=== PATIENT | female | born 1990 | race Caucasian/White ===

== ENCOUNTER 2021-09-24 19:43 | Emergency (ER) | payer OTHER ==
--- NOTE | 2021-09-24 19:48 | ERPHSYRPT ---
- History of Present Illness Time Seen by Provider: 09/24/21 19:48 Source: patient Exam Limitations: no limitations Physician History: This is a 31-year-old white female who has some anxiety issues and approximately 9 months ago was diagnosed with pneumonia. She has had pain in the left posterior lateral region ever since. Last 2 months it seems to be getting worse. She has not fallen she does not have a cough. She has not had a fever. The patient also told the nurse that she thinks that she might have an STD. She is not having any dysuria, hematuria or frequency she has no abdominal pain. She has no nausea vomiting or diarrhea symptoms but she does have flank pain on the left side. Patient drove herself into the hospital. Timing/Duration: other (2 months) Method of Injury: other (No trauma) Quality: dull, aching Back Pain Location: T-spine, paraspinous muscles Severity of Pain-Max: mild Severity of Pain-Current: mild Associated Symptoms: denies symptoms Previous symptoms: same symptoms as today, no recent treatment Allergies/Adverse Reactions: metoclopramide [From Reglan] Allergy (Verified 09/24/21 20:07) Home Medications: Alprazolam [Xanax] 1 tab PO QID 09/24/21 [History] Gabapentin 1 tab PO HS 09/24/21 [History] Gabapentin 100 mg [Neurontin 100 MG] 200 mg PO BID 09/24/21 [History] Galcanezumab-Gnlm [Emgality Syringe] 120 mg IM DIRECTIONS UNKNOWN 09/24/21 [History] Sumatriptan Succinate 6 mg [Imitrex 6 MG/0.5 ML] 6 mg IM DAILY PRN 09/24/21 [History] Tizanidine HCl 4 mg [Zanaflex 4 MG] 2 tab PO HS 09/24/21 [History] Travel Risk - International Travel Have you traveled outside of the country in past 3 weeks: No - Coronavirus Screening Are you exhibiting any of the following symptoms?: No Close contact with a COVID-19 positive Pt in past 14-21 Days: No - Review of Systems Constitutional: No Symptoms Eyes: No Symptoms Ears, Nose, & Throat: No Symptoms Respiratory: No Symptoms Cardiac: No Symptoms Abdominal/Gastrointestinal: No Symptoms Genitourinary Symptoms: No Symptoms Musculoskeletal: Back Pain, No Fall, No Injury Skin: No Symptoms Neurological: No Symptoms Psychological: No Symptoms Endocrine: No Symptoms Hematologic/Lymphatic: No Symptoms Immunological/Allergic: No Symptoms All Other Systems: Reviewed and Negative - Past Medical History Pertinent Past Medical History: Yes - Past Surgical History Past Surgical History: Yes - Nursing Vital Signs Nursing Vital Signs: Initial Vital Signs Temperature 99.2 F 09/24/21 20:10 Pulse Rate 76 09/24/21 20:10 Respiratory Rate 18 09/24/21 20:10 Blood Pressure 122/77 09/24/21 20:10 O2 Sat by Pulse Oximetry 99 09/24/21 20:10 Pain Scale Pain Intensity [Center of back [address]] Pain Intensity 6 - Physical Exam General Appearance: no apparent distress, alert, anxiety Eye Exam: PERRL/EOMI, eyes nml inspection Ears, Nose, Throat Exam: normal ENT inspection, moist mucous membranes Neck Exam: normal inspection, non-tender, supple, full range of motion Respiratory Exam: normal breath sounds, lungs clear, airway intact, No chest tenderness, No respiratory distress Gastrointestinal Exam: No tenderness Pelvic Exam: not done Rectal Exam: not done Back Exam: normal inspection, normal range of motion, CVA tenderness (? Left side), muscle spasm (Left side thoracic spine level), No vertebral tenderness Extremity Exam: normal inspection, normal range of motion, pelvis stable Neurologic Exam: alert, oriented x 3, cooperative, canteen attendant II-XII nml as tested, normal mood/affect, nml cerebellar function, nml station & gait, sensation nml Skin Exam: normal color, warm, dry Lymphatic Exam: No adenopathy SpO2 Interpretation: normal O2 Delivery: Room Air - Course Nursing assessment & vital signs reviewed: Yes Ordered Tests: Active Orders 24 hr Category Date Time Status CHEST 1 VIEW (PORTABLE) Stat Exams 09/24/21 20:29 Taken CULTURE,URINE Stat Lab 09/24/21 20:36 Received Medication Summary Discontinued Medications Generic Name Dose Route Start Last Admin Trade Name Freq PRN Reason Stop Dose Admin Hydrocodone Bitart/Acetaminophen 2 tab 09/24/21 22:01 09/24/21 22:06 Hydrocodone/Apap 5/325 Mg Tablet PO 09/24/21 22:02 2 tab SENT HOME W/ PATIENT ONE Administration Hydrocodone Bitart/Acetaminophen Confirm 09/24/21 22:05 Hydrocodone/Apap 5/325 Mg Tablet Administered 09/24/21 22:06 Dose 2 tab .ROUTE .STK-MED ONE Ciprofloxacin 500 mg 09/24/21 21:55 09/24/21 21:57 Ciprofloxacin 500 Mg Tablet PO 09/24/21 21:56 500 mg STAT ONE Administration Ciprofloxacin Confirm 09/24/21 21:57 Ciprofloxacin 500 Mg Tablet Administered 09/24/21 21:58 Dose 500 mg .ROUTE .STK-MED ONE Lab/Rad Data: Laboratory Results 09/24/21 09/24/21 Range/Units Unknown 20:36 Urinalys Dipstick Clnc MAIN LAB Urine Color YELLOW (YELLOW) Urine Appearance SLIGHTLY CLOUDY (CLEAR) Urine pH 6.0 (5-6) Ur Specific [place] 1.025 (1.005-1.025) POC Urine Protein Conf TRACE (Negative) Urine Ketones MODERATE-40 (NEGATIVE) Urine Nitrite NEGATIVE (NEGATIVE) Urine Bilirubin SMALL (NEGATIVE) Urine Urobilinogen 0.2 (0-1) mg/dL Urine Leukocytes SMALL (NEGATIVE) Urine WBC (Auto) 16-25 (0-5) /HPF Urine RBC (Auto) 3-5 (0-2) /HPF U Epithel Cells (Auto) RARE (FEW) /HPF Urine Bacteria (Auto) RARE (NEGATIVE) /HPF Urine RBC NEGATIVE (0-5) Tj/ul Urine Mucus (Auto) MANY (NEGATIVE) /HPF Ur Culture Indicated? YES Urine Glucose NEGATIVE (NEGATIVE) mg/dL Chlamydia DNA Probe NOT DETECTED (NEGATIVE) N.gonorrhoeae DNA Probe NOT DETECTED (NEGATIVE) - Progress Progress: unchanged Progress Note: 09/24/21 21:35 Chest x-ray shows no acute cardiopulmonary process. Counseled pt/family regarding: lab results, diagnosis, need for follow-up, rad results - Departure Departure Disposition: Home Clinical Impression: Back pain, UTI (urinary tract infection) Condition: Stable Critical Care Time: No Referrals: DOCTOR,NO FAMILY [Primary Care Provider] - Follow up/PCP as directed Additional Instructions: Continue your gabapentin and Zanaflex as prescribed. Call your prescribing physician tomorrow morning, 09/25/2021 for further evaluation and management. Take your antibiotics as prescribed Prescriptions: Ciprofloxacin [Cipro 500 MG] 500 mg PO BID #14 tablet
[2021-09-24 21:11] LABS: Bacteria RARE /HPF (NEGATIVE); Epithelial Cells RARE /HPF (FEW); Mucus MANY /HPF (NEGATIVE)
[2021-09-24 21:12] LABS: Appearance SLIGHTLY CLOUDY (CLEAR); Bilirubin SMALL (NEGATIVE); Glucose NEGATIVE (NEGATIVE); Ketones MODERATE-40 (NEGATIVE); Nitrite NEGATIVE (NEGATIVE); Protein,Urine Dip TRACE (Negative); RBC NEGATIVE Ery/ul (0-5); Specific Gravity 1.025 (1.005-1.025); Urine Cultured Indicated? YES; Urobilinogen 0.2 mg/dL (0-1)
[2021-09-24 21:16] LABS: Dipstick done @ ? MAIN LAB
[2021-09-24] MEDS ORDERED: Cipro 500 MG PO ONE (21:55)
[2021-09-24] MEDS ORDERED: Cipro 500 MG ONE (21:57)
[2021-09-24] MEDS ORDERED: NORCO 5/325 MG PO ONE (22:01)
[2021-09-24 22:05] VITALS: O2SAT 96
[2021-09-24] MEDS ORDERED: NORCO 5/325 MG ONE (22:05)
[2021-09-24 22:47] LABS: CHLAMYDIA DNA NOT DETECTED (NEGATIVE); GC DNA Probe NOT DETECTED (NEGATIVE)
[2021-09-24 23:00] VITALS: BP 97/48; PULSE 60
--- NOTE | 2021-09-25 08:52 | XRAY ---
Indication: Left rib pain. No known injury. Comparison: None Portable chest demonstrates normal heart, lungs, and bony thorax.
== END 2021-09-24 23:02 | disposition home or self-care (01) ==
LOC: ED 19:43
DX: N39.0 Urinary tract infection, site not specified (principal); M54.50 Low back pain, unspecified; Z79.899 Other long term (current) drug therapy
CPT/HCPCS: 71045; 81015; 87086; 87491; 87591; 99284; A9270-GY

== ENCOUNTER 2022-10-17 20:30 | Emergency (ER) | payer OTHER ==
[2022-10-17] MEDS ORDERED: XYLOCAINE 1% HCL 20 ML MDV IJ ONE (20:31)
[2022-10-17] MEDS ORDERED: TORAdol 30 mg Injection IM ONE (22:02)
[2022-10-17] MEDS ORDERED: TORAdol 30 mg Injection ONE (22:04)
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
[2022-10-17 23:29] LABS: Appearance Clear (Clear); Bacteria Many /HPF (None Seen); Bilirubin Negative (Negative); Blood Negative (Negative); Epithelial Cells Few /HPF (None Seen); Glucose, Urine Negative (Negative); Hyaline Casts NONE SEEN /LPF (0-2); Ketones Negative (Negative); Leukocyte Esterase Moderate (Negative); Nitrite Positive (Negative); Protein,Urine Dip Negative (Negative); RBC 0-2 /HPF (0-5); WBC 21-50 /HPF (0-5)
[2022-10-17 23:31] LABS: ADD URINE CULTURE? YES (NO)
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
[2022-10-18 00:39] LABS: Candida Group NOT DETECTED (NEGATIVE)
[2022-10-18] MEDS ORDERED: Macrobid 100MG Capsule PO ONE (00:56)
[2022-10-18] MEDS ORDERED: Flagyl 500 MG PO ONE (00:58)
[2022-10-18 01:00] VITALS: O2SAT 96
[2022-10-18] MEDS ORDERED: Flagyl 500 MG ONE (01:03)
[2022-10-18] MEDS ORDERED: Macrobid 100MG Capsule ONE (01:03)
[2022-10-18 01:07] LABS: CHLAMYDIA DNA DETECTED (NEGATIVE); GC DNA Probe NOT DETECTED (NEGATIVE)
[2022-10-18] MEDS ORDERED: Zithromax 250 MG TABLET PO ONE (01:32)
[2022-10-18] MEDS ORDERED: Rocephin 500 MG INJ IM ONE (01:33)
[2022-10-18] MEDS ORDERED: Rocephin 500 MG INJ ONE (01:34)
[2022-10-18] MEDS ORDERED: Zithromax 250 MG TABLET ONE (01:34)
[2022-10-18 01:59] VITALS: BP 117/72
[2022-10-18 02:10] VITALS: PULSE 82
== END 2022-10-18 02:10 | disposition home or self-care (01) ==
LOC: ED 20:30
DX: S20.212A Contusion of left front wall of thorax, initial encounter (principal); S70.12XA Contusion of left thigh, initial encounter; S70.02XA Contusion of left hip, initial encounter; Y00.XXXA Assault by blunt object, initial encounter; Y07.030 Male partner, current, perpetrator of maltreatment and neglect; T84.213A Breakdown (mechanical) of internal fixation device of bones of foot and toes, initial encounter; N39.0 Urinary tract infection, site not specified; B37.31 Acute candidiasis of vulva and vagina; A59.01 Trichomonal vulvovaginitis; A74.9 Chlamydial infection, unspecified; Z79.899 Other long term (current) drug therapy; Z72.0 Tobacco use
CPT/HCPCS: 71045; 71100; 73630; 81001; 87077; 87086; 87186; 87481; 87491; 87591; 87661; 87801; 96372; 99284; J0696; J1885; A9270-GY